=== PATIENT | female | born 1990 | race Two or more races ===

== ENCOUNTER 2022-03-14 08:53 | Outpatient (CLI) | payer OTHER | END 2022-03-14 09:02 | disposition home or self-care (01) | LOC: SONOGRAMA 08:53 | PROVIDERS: ATTEND Obstetrics & Gynecology Reproductive Endocrinology | DX: N93.8 Other specified abnormal uterine and vaginal bleeding (principal) ==

== ENCOUNTER → 2024-03-22 | Emergency (ER) | payer OTHER ==
[~2024-03-22] VITALS: Ht 152.4 cm; Wt 68.0 kg
[~2024-03-22] MED LIST: BRIMONIDINE TART5 M1; FOLIC ACID0.4 MG; PREDNISOLONE ACE5 M1
== END | disposition left against medical advice (07) ==
LOC: ER 20:36
DX: Z53.21 Procedure and treatment not carried out due to patient leaving prior to being seen by health care provider (principal)